=== PATIENT | male | born 1980 | race Caucasian/White ===

== ENCOUNTER 2020-05-09 16:19 | Emergency (ER) | payer OTHER ==
[~2020-05-09 16:19] MED LIST: IBUPROFEN800 M1 PO; PENICILLIN V P250 M1 PO
[2020-05-09 17:29] LABS: BASOPHIL 0.2 % (0-2); EOSINOPHIL 0.2 % (0-5); HGB 9.1 g/dl (13.2-18.0); LYMPHOCYTE 5.1 % (15-48); MCH 30.3 pg (25.0-31.0); MCHC 30.3 g/dL (32.0-36.0); MONOCYTE 12.6 % (0-12); MPV 9.4 fL (6.0-9.5); NEUTROPHIL 81.4 % (41-80); NRBC 0; PLT 498 K/uL (150-400); RDW 17.1 % (11.5-14.0); WBC 12.1 K/uL (4.0-10.5)
[2020-05-09 17:41] LABS: ALBUMIN 2.4 g/dL (3.4-5.0); BILIRUBIN - TOTAL 0.4 mg/dL (0.2-1.0); BUN/CREAT RATIO (CALC) 44.9 RATIO; CREATININE 0.49 mg/dL (0.67-1.17); GLOBULIN (CALCULATION) 4.9 g/dL; TOTAL PROTEIN 7.3 g/dL (6.4-8.2)
[2020-05-09 19:12] LABS: BILIRUBIN NEGATIVE (NEGATIVE); BLOOD NEGATIVE Ery/uL (NEGATIVE); CLARITY HAZY (CLEAR); COLOR YELLOW (YELLOW); GLUCOSE (U) NORMAL (NORMAL); LEUKOCYTES NEGATIVE Leu/uL (NEGATIVE); NITRITE NEGATIVE (NEGATIVE); PROTEIN TRACE (LOW) mg/dL (NEGATIVE); UROBILINOGEN 0.2 mg/dL (0.2-1.0)
[2020-05-09 19:16] LABS: AMORPHOUS URATES CRYSTALS MODERATE; BACTERIA TRACE
[2020-05-12 11:05] LABS: RETICULOCYTE COUNT 2.9 % (1.0-2.0)
[2020-05-12 11:11] LABS: IRON % SATURATION 9.3 %SAT (20-50)
== END 2020-05-09 20:33 | disposition home or self-care (01) ==
LOC: FER 16:19
PROVIDERS: Nurse Practitioner Family
DX: R10.9 Unspecified abdominal pain (principal); C78.7 Secondary malignant neoplasm of liver and intrahepatic bile duct; C77.2 Secondary and unspecified malignant neoplasm of intra-abdominal lymph nodes; Z85.47 Personal history of malignant neoplasm of testis; Z93.1 Gastrostomy status
CPT/HCPCS: 36415; 80053; 81001; 82728; 82746; 83540; 83550; 85025; J7030; Q9967

== ENCOUNTER 2020-12-30 15:15 | Day surgery (SDCO) | payer OTHER ==
[~2020-12-30] VITALS: Ht 185.4 cm; Wt 73.7 kg
[2020-12-30 15:58] LABS: BASOPHIL 1.9 % (0-2); EOSINOPHIL 1.9 % (0-5); HCT 25.3 % (42.0-52.0); HGB 8.5 g/dl (13.2-18.0); LYMPHOCYTE 58.5 % (15-48); MCH 37.4 pg (25.0-31.0); MCHC 33.6 g/dL (32.0-36.0); MCV 111.5 fL (78.0-100.0); MONOCYTE 15.1 % (0-12); MPV 10.2 fL (6.0-9.5); NEUTROPHIL 22.6 % (41-80); NRBC 0; PLT 100 K/uL (150-400); RBC 2.27 M/uL (4.70-6.00); RDW 16.4 % (11.5-14.0)
[2020-12-30 16:09] LABS: WBC 0.5 K/uL (4.0-10.5)
[2020-12-30 16:22] LABS: ALBUMIN 2.5 g/dL (3.4-5.0); BILIRUBIN - TOTAL 0.9 mg/dL (0.2-1.0); BUN/CREAT RATIO (CALC) 32.7 RATIO; CREATININE 0.52 mg/dL (0.67-1.17); GLOBULIN (CALCULATION) 3.6 g/dL; POTASSIUM 3.9 mmol/L (3.5-5.1); TOTAL PROTEIN 6.1 g/dL (6.4-8.2)
[2020-12-30 16:26] LABS: LACTIC ACID 1.6 mmol/L (0.4-1.9)
[2020-12-30 17:11] LABS: CORONAVIRUS 2019 SARS-COV-2 NEGATIVE (NEGATIVE); INFLUENZA A NAA NEGATIVE (NEGATIVE)
[2020-12-30 17:48] LABS: BILIRUBIN NEGATIVE (NEGATIVE); BLOOD NEGATIVE Ery/uL (NEGATIVE); CLARITY CLEAR (CLEAR); COLOR YELLOW (YELLOW); GLUCOSE (U) NORMAL (NORMAL); LEUKOCYTES NEGATIVE Leu/uL (NEGATIVE); NITRITE NEGATIVE (NEGATIVE); PROTEIN TRACE (LOW) mg/dL (NEGATIVE); SPECIFIC GRAVITY >=1.030 (1.001-1.030); UROBILINOGEN 0.2 mg/dL (0.2-1.0)
[2020-12-30] MEDS ORDERED: PROTONIX 40MG T40 MG PO (21:34)
[2020-12-30] MEDS ORDERED: CYMBALTA 30MG C30 MG PO (21:34)
[2020-12-30] MEDS ORDERED: ELIQUIS5 MG PO ×2 (21:34→21:37)
[2020-12-30] MEDS ORDERED: POTASSIUM CHLO20 ME2 PO (21:35)
[2020-12-30] MEDS ORDERED: OXYCODONE HCL10 MG PO (21:36)
--- NOTE | 2020-12-31 02:07 | NUR ---
PT TEMP 99.0 TYLENOL EFFECTIVE
[2020-12-31 06:10] LABS: BASOPHIL 1.2 % (0-2); EOSINOPHIL 2.4 % (0-5); HGB 8.5 g/dl (13.2-18.0); LYMPHOCYTE 58.5 % (15-48); MCH 37.3 pg (25.0-31.0); MCHC 32.7 g/dL (32.0-36.0); MONOCYTE 12.2 % (0-12); MPV 10.8 fL (6.0-9.5); NEUTROPHIL 25.7 % (41-80); NRBC 0; PLT 105 K/uL (150-400); RBC 2.28 M/uL (4.70-6.00); RDW 16.7 % (11.5-14.0)
[2020-12-31 06:52] LABS: ALBUMIN 2.5 g/dL (3.4-5.0); BILIRUBIN - TOTAL 0.8 mg/dL (0.2-1.0); BUN/CREAT RATIO (CALC) 17.5 RATIO; C-REACTIVE PROTEIN 4.3 mg/dL (<=0.90); CREATININE 0.57 mg/dL (0.67-1.17); GLOBULIN (CALCULATION) 3.5 g/dL; MAGNESIUM 1.7 mg/dL (1.8-2.4); PHOSPHORUS 1.6 mg/dL (2.6-4.7); POTASSIUM 4.2 mmol/L (3.5-5.1)
[2020-12-31 07:39] LABS: WBC 0.8 K/uL (4.0-10.5)
[2020-12-31 08:00] LABS: NEUTROPHILS(M) 12 % (41-80); TOTAL CELL COUNT 50
[2020-12-31 08:02] LABS: EOSINOPHIL(M) 4 % (0-5); MONOCYTE(M) 4 % (0-12)
[2020-12-31 08:03] LABS: BAND 10 % (0-10); VARIANT LYMPHOCYTE 4
[2020-12-31 08:05] LABS: LYMPHOCYTE(M) 66 % (15-48)
[2020-12-31 08:06] LABS: ANISOCYTOSIS MODERATE; PLATELET ESTIMATE DECREASED
[2020-12-31 08:07] LABS: PLATELET MORPHOLOGY NORMAL
--- NOTE | 2020-12-31 15:37 | NUR ---
REFERRAL REGARDING RESOURCES. MET WITH PT. HE ADVISED THAT HE DOES NOT USE ANY DME. HE HAS ALREADY RECEIVED HIS SOCIAL SECURITY DISABILITY. HE HAS MET WITH BRENDA CH[facility]. HE HAS INFORMATION REGARADING RESOURCES RELATED TO [facility]. HE CONTINUES TREATMENTS WITH DR. SHERMAN AT THE [facility]. HIS GIRLFRIEND, WHOM HE RESIDES WITH, TRANSPORTS HIM FOR HIS TREATMENTS.
[2021-01-01 05:39] LABS: BASOPHIL 0.8 % (0-2); EOSINOPHIL 1.6 % (0-5); HCT 22.6 % (42.0-52.0); HGB 7.4 g/dl (13.2-18.0); MCHC 32.7 g/dL (32.0-36.0); MPV 10.4 fL (6.0-9.5); NEUTROPHIL 32.8 % (41-80); NRBC 7.2; PLT 108 K/uL (150-400); RDW 16.8 % (11.5-14.0)
[2021-01-01 06:16] LABS: WBC 1.3 K/uL (4.0-10.5)
[2021-01-01 06:21] LABS: ALBUMIN 2.1 g/dL (3.4-5.0); BILIRUBIN - TOTAL 0.9 mg/dL (0.2-1.0); BUN/CREAT RATIO (CALC) 11.7 RATIO; CREATININE 0.6 mg/dL (0.67-1.17); GLOBULIN (CALCULATION) 3.1 g/dL; POTASSIUM 4.2 mmol/L (3.5-5.1); TOTAL PROTEIN 5.2 g/dL (6.4-8.2)
[2021-01-02 06:08] LABS: HCT 24.5 % (42.0-52.0); HGB 8.2 g/dl (13.2-18.0); LYMPHOCYTE 19.7 % (15-48); MCH 37.6 pg (25.0-31.0); MCHC 33.5 g/dL (32.0-36.0); MCV 112.4 fL (78.0-100.0); NEUTROPHIL 34.6 % (41-80); NRBC 5.2; PLT 124 K/uL (150-400); RBC 2.18 M/uL (4.70-6.00); RDW 17.1 % (11.5-14.0)
[2021-01-02 06:09] LABS: MONOCYTE 25.9 % (0-12); WBC 3.1 K/uL (4.0-10.5)
--- NOTE | 2021-01-02 12:18 | NUR ---
PER SOCORRO GONZALEZ, PT. WILL POSSIBILY D/C HOME ON 01/03 WITH NO NEEDS.
[2021-01-03 05:28] LABS: BASOPHIL 0.7 % (0-2); EOSINOPHIL 0.5 % (0-5); HCT 23.7 % (42.0-52.0); HGB 7.9 g/dl (13.2-18.0); LYMPHOCYTE 11.6 % (15-48); MCH 37.6 pg (25.0-31.0); MCHC 33.3 g/dL (32.0-36.0); MCV 112.9 fL (78.0-100.0); MPV 10.1 fL (6.0-9.5); NRBC 2.5; PLT 124 K/uL (150-400); RDW 17.8 % (11.5-14.0)
[2021-01-03 05:42] LABS: NEUTROPHIL 59.4 % (41-80); WBC 7.5 K/uL (4.0-10.5)
[2021-01-03 05:45] LABS: ALBUMIN 2.1 g/dL (3.4-5.0); BILIRUBIN - TOTAL 1.1 mg/dL (0.2-1.0); BUN/CREAT RATIO (CALC) 5.1 RATIO; CREATININE 0.79 mg/dL (0.67-1.17); TOTAL PROTEIN 5.1 g/dL (6.4-8.2)
== END 2021-01-03 11:45 | disposition home or self-care (01) ==
LOC: FER 15:15 → FMS 18:18
PROVIDERS: Internal Medicine; Nurse Practitioner; ADMIT Family Medicine
DX: D70.9 Neutropenia, unspecified (principal); R50.81 Fever presenting with conditions classified elsewhere; K94.22 Gastrostomy infection; C15.9 Malignant neoplasm of esophagus, unspecified; C79.9 Secondary malignant neoplasm of unspecified site; D61.818 Other pancytopenia; F17.210 Nicotine dependence, cigarettes, uncomplicated; Z79.01 Long term (current) use of anticoagulants; Z79.899 Other long term (current) drug therapy; Z20.822 Contact with and (suspected) exposure to COVID-19
CPT/HCPCS: 36415; 71250; 80053; 80202; 81003; 82728; 83605; 83615; 83735; 84100; 84145; 85025; 86140; 87040; 87880; 94010; C9113; G0378; J1447; J1642; J2405; J2543; J3370; J7030; J7050; U0002

== ENCOUNTER 2021-02-02 10:12 | Emergency (ER) | payer OTHER ==
[~2021-02-02 10:12] MED LIST changes: +CYMBALTA 30MG C30 MG PO; +ELIQUIS5 MG PO; +OXYCODONE HCL10 MG PO; +POTASSIUM CHLO20 ME2 PO; +PROTONIX 40MG T40 MG PO
[2021-02-02 12:03] LABS: BASOPHIL 0.8 % (0-2); EOSINOPHIL 0.5 % (0-5); HGB 9.3 g/dl (13.2-18.0); LYMPHOCYTE 15.8 % (15-48); MCH 35.5 pg (25.0-31.0); MCHC 32.1 g/dL (32.0-36.0); MCV 110.7 fL (78.0-100.0); MPV 9.7 fL (6.0-9.5); NEUTROPHIL 41.4 % (41-80); NRBC 0; PLT 143 K/uL (150-400); RBC 2.62 M/uL (4.70-6.00); RDW 16.9 % (11.5-14.0); WBC 3.7 K/uL (4.0-10.5)
[2021-02-02 12:06] LABS: INR 1.68 (0.9-1.2)
[2021-02-02 12:07] LABS: PTT 49.5 SECONDS (24.4-34.7)
[2021-02-02 12:10] LABS: MONOCYTE 39.4 % (0-12)
[2021-02-02 12:14] LABS: ALBUMIN 2.4 g/dL (3.4-5.0); BILIRUBIN - TOTAL 1.3 mg/dL (0.2-1.0); BUN/CREAT RATIO (CALC) 28.1 RATIO; CREATININE 0.57 mg/dL (0.67-1.17); GLOBULIN (CALCULATION) 3.6 g/dL; POTASSIUM 3.6 mmol/L (3.5-5.1)
== END 2021-02-02 14:33 | disposition home or self-care (01) ==
LOC: FER 10:12
PROVIDERS: Emergency Medicine
DX: R18.8 Other ascites (principal); F17.210 Nicotine dependence, cigarettes, uncomplicated
CPT/HCPCS: 36415; 80053; 85025; 85610; 85730

== ENCOUNTER 2021-04-24 15:23 | Inpatient (IN) | payer OTHER ==
[~2021-04-24] VITALS: Ht 190.5 cm; Wt 61.0 kg
[2021-04-24 16:29] LABS: BASOPHIL 0.2 % (0-2); EOSINOPHIL 0.4 % (0-5); HCT 38.2 % (42.0-52.0); HGB 13.4 g/dl (13.2-18.0); LYMPHOCYTE 4.1 % (15-48); MCH 33.5 pg (25.0-31.0); MCHC 35.1 g/dL (32.0-36.0); MPV 9.4 fL (6.0-9.5); NEUTROPHIL 82.5 % (41-80); NRBC 0; PLT 224 K/uL (150-400); RDW 15.7 % (11.5-14.0); WBC 14.2 K/uL (4.0-10.5)
[2021-04-24 16:41] LABS: BILIRUBIN - TOTAL 1.6 mg/dL (0.2-1.0); CREATININE 1.23 mg/dL (0.67-1.17); GLOBULIN (CALCULATION) 3.6 g/dL; POTASSIUM 4.4 mmol/L (3.5-5.1); TOTAL PROTEIN 5.6 g/dL (6.4-8.2)
[2021-04-24 16:42] LABS: MCV 95.5 fL (78.0-100.0)
[2021-04-24 16:47] LABS: LACTIC ACID 2.9 mmol/L (0.4-1.9)
[2021-04-24 19:22] LABS: CORONAVIRUS 2019 SARS-COV-2 NEGATIVE (NEGATIVE); INFLUENZA A NAA NEGATIVE (NEGATIVE)
[2021-04-24 21:30] LABS: BILIRUBIN NEGATIVE (NEGATIVE); BLOOD NEGATIVE Ery/uL (NEGATIVE); CLARITY CLEAR (CLEAR); COLOR YELLOW (YELLOW); GLUCOSE (U) NORMAL (NORMAL); LEUKOCYTES NEGATIVE Leu/uL (NEGATIVE); NITRITE NEGATIVE (NEGATIVE); PROTEIN NEGATIVE (NEGATIVE); SPECIFIC GRAVITY 1.025 (1.001-1.030); pH 5.5 (5.0-9.0)
[2021-04-24] MEDS ORDERED: MORPHINE S10 MG/5 M1 SL (22:56)
[2021-04-24] MEDS ORDERED: ATIVAN 2MG/ML2 MG/ML SL (22:58)
[2021-04-24] MEDS ORDERED: BACTRIM 200MG/480 ML PO (23:00)
[2021-04-24] MEDS ORDERED: HALOPERIDOL SL (23:08)
[2021-04-24] MEDS ORDERED: DURAGESIC1 EAC1 TOP (23:10)
[2021-04-25 00:05] LABS: RETICULOCYTE COUNT 2.9 % (1.0-2.0)
[2021-04-25 00:15] LABS: IRON % SATURATION 23.8 %SAT (20-50)
[2021-04-25 00:21] LABS: BUN/CREAT RATIO (CALC) 37.1 RATIO; CREATININE 1.24 mg/dL (0.67-1.17); POTASSIUM 3.9 mmol/L (3.5-5.1)
--- NOTE | 2021-04-25 03:35 | NUR ---
CALLED TO ROOM PER FAMILY PATIENT UP TO BSC DURING TRANSFER BACK TO BED IT WAS NOTED THAT A MODERATE AMOUNT OF BLEEDING WITH CLOTS PRESENT FOR G-TUBE SITE. PRESSURE APPLIED TO AREA AND SUPPLY CHAIN DIRECTOR ASSESSED PATIENT, NEW ORDERS RECIEVED, AREA CLEANSED WITH DRESSING APPIED. FAMILY REMAINS AT BEDSIDE.
--- NOTE | 2021-04-25 03:37 | NUR ---
BLEEDING CONTROLLED AT THIS TIME.
--- NOTE | 2021-04-25 05:18 | NUR ---
180CC OF STOMACH CONTENT EMPTIED FROM G-TUBE INTO DRAINAGE BAG TO BSD.
[2021-04-25 06:17] LABS: BASOPHIL 0.1 % (0-2); EOSINOPHIL 0.2 % (0-5); HCT 31.3 % (42.0-52.0); HGB 11.2 g/dl (13.2-18.0); LYMPHOCYTE 3.5 % (15-48); MCHC 35.8 g/dL (32.0-36.0); MCV 95.1 fL (78.0-100.0); MONOCYTE 12.7 % (0-12); MPV 9.4 fL (6.0-9.5); NEUTROPHIL 82.7 % (41-80); NRBC 0; PLT 180 K/uL (150-400); RBC 3.29 M/uL (4.70-6.00); RDW 15.5 % (11.5-14.0); WBC 14.1 K/uL (4.0-10.5)
[2021-04-25 06:35] LABS: BUN/CREAT RATIO (CALC) 33.9 RATIO; CREATININE 1.27 mg/dL (0.67-1.17); POTASSIUM 3.4 mmol/L (3.5-5.1)
--- NOTE | 2021-04-25 11:48 | NUR ---
ASSISTED SURGON AT BEDSIDE, SURGON WANTS OSTOMY BARRIOR SWAB USED WITH OSTOMY ADAPT PASTE APPLIED, OSTOMY BASE APPLIED AROUND GTUBE TO HELP PROTECT SKIN FROM DRAINAGE, SPONGE GAUZE THEN APPLIED AROUNG TUBE, GTUBE APPLIED TO INTERMITTEN LOW WALL SUCTION PER MD VERBAL ORDER, SURGON CAME BACK TO ASSESS INTERVENTION
[2021-04-25 15:44] LABS: BUN/CREAT RATIO (CALC) 38.5 RATIO; CREATININE 1.35 mg/dL (0.67-1.17); POTASSIUM 3.3 mmol/L (3.5-5.1)
[2021-04-25 21:14] LABS: BILIRUBIN NEGATIVE (NEGATIVE); BLOOD NEGATIVE Ery/uL (NEGATIVE); CLARITY CLEAR (CLEAR); COLOR YELLOW (YELLOW); GLUCOSE (U) NORMAL (NORMAL); LEUKOCYTES NEGATIVE Leu/uL (NEGATIVE); NITRITE NEGATIVE (NEGATIVE); PROTEIN NEGATIVE (NEGATIVE); SPECIFIC GRAVITY 1.025 (1.001-1.030); UROBILINOGEN 0.2 mg/dL (0.2-1.0); pH 5.5 (5.0-9.0)
[2021-04-25 21:27] LABS: AMORPHOUS URATES CRYSTALS MODERATE; BACTERIA 2+; URINARY RBC RARE; URINARY WBC RARE
--- NOTE | 2021-04-25 21:49 | NUR ---
2015- ORDER RECIEVED TO PLACE CORRIGAN D/T BLADDER SCAN RESULTS OF 999+ AND U/O OF 125CC/HR MULTI ATTEMPTS TO INSERT CORRIGAN WITH VARIOUS SIZES. INSTRUCTIONAL SYSTEMS DESIGN CONSULTANT NOTFIED AND INSERTED UROLOGY CATHETER FOR UROLOGY KIT FROM ER. PATIENT RETURNED LESS THAN 250CC OF YELLOW URINE. BLADDER SCAN REPEATED WITH SAME RESULTS OF 999+, BLADDER SCAN RESULTS PER INSTRUCTIONAL SYSTEMS DESIGN CONSULTANT MAYBE RELATED TO ASCITES. PATIENT TOLERATED PROCEDURE WELL.URINE SEND TO LAB FOR URINE AND CULTURE.
[2021-04-26 09:03] LABS: BASOPHIL 0.1 % (0-2); EOSINOPHIL 0.1 % (0-5); HCT 27.8 % (42.0-52.0); HGB 9.6 g/dl (13.2-18.0); LYMPHOCYTE 3.4 % (15-48); MCH 33.9 pg (25.0-31.0); MCHC 34.5 g/dL (32.0-36.0); MCV 98.2 fL (78.0-100.0); MONOCYTE 11.3 % (0-12); MPV 9.1 fL (6.0-9.5); NEUTROPHIL 84.6 % (41-80); NRBC 0; PLT 141 K/uL (150-400); RBC 2.83 M/uL (4.70-6.00); RDW 16.1 % (11.5-14.0); WBC 11.6 K/uL (4.0-10.5)
[2021-04-26 09:18] LABS: CREATININE 1.12 mg/dL (0.67-1.17); MAGNESIUM 1.8 mg/dL (1.8-2.4); POTASSIUM 2.9 mmol/L (3.5-5.1)
--- NOTE | 2021-04-27 04:29 | NUR ---
0415- PATIENT REQUESTING PAIN MEDICATION ROUTINELY AND STATING IT IS NOT LASTING THE FULL 2 HOURS. STATES HIS PAIN IS MORE SEVERE IN HIS BACK. SPOKE WITH SPORTS FITNESS AND WELLNESS DIRECTOR NEW ORDER RECIEVED TO START FENTANYL TRANSDERMAL PATCH 25MCG/HR FOR PAIN CONTROL. PATIENT WAS USING FENTANYL PATCHES AT HOME PRIOR TO ADMISSION. PATCH PLACED ON RIGHT UPPER CHEST WITH TEGADERM TO SECURE. DISCUSS MEDICATION AND PAIN CONTROL PLAN WITH PATIENT STATES UNDERSTANDING.
[2021-04-27 08:04] LABS: BASOPHIL 0.2 % (0-2); EOSINOPHIL 0.4 % (0-5); HCT 27.7 % (42.0-52.0); HGB 9.6 g/dl (13.2-18.0); LYMPHOCYTE 4.1 % (15-48); MCH 34.5 pg (25.0-31.0); MCHC 34.7 g/dL (32.0-36.0); MCV 99.6 fL (78.0-100.0); MONOCYTE 11.7 % (0-12); MPV 9.3 fL (6.0-9.5); NEUTROPHIL 82.8 % (41-80); NRBC 0; PLT 141 K/uL (150-400); RBC 2.78 M/uL (4.70-6.00); RDW 16.3 % (11.5-14.0); WBC 9.8 K/uL (4.0-10.5)
[2021-04-27 08:17] LABS: BUN/CREAT RATIO (CALC) 40.8 RATIO; CREATININE 0.76 mg/dL (0.67-1.17); MAGNESIUM 1.9 mg/dL (1.8-2.4); POTASSIUM 2.9 mmol/L (3.5-5.1)
--- NOTE | 2021-04-27 14:02 | NUR ---
MET WITH PT AND HIS GIRLFRIEND. DISCUSSED SOME OPTIONS WITH PT. I.E. POSSIBLY GOING BACK TO DR. SHERMAN SO THAT HE MAY ORDER LABS FOR PT AND COMING TO OUTPT IF TREATMENT NEEDED. HOSPICE-BUT GIRLFRIEND IS NOT VERY HAPPY WITH THE SERVICES THEY HAVE RECEIVED. HOWEVER, THEY ARE CONCERNED WITH NOT BEING ABLE TO GET HIS PAIN MEDICATION. THE PT AND HIS GIRLFRIEND ARE GOING TO DISCUSS THEIR OPTIONS AND I WILL MEET WITH THEM AGAIN.
[2021-04-28 05:29] LABS: BASOPHIL 0.3 % (0-2); EOSINOPHIL 0.4 % (0-5); HCT 30.4 % (42.0-52.0); HGB 9.9 g/dl (13.2-18.0); LYMPHOCYTE 5.1 % (15-48); MCH 33.3 pg (25.0-31.0); MCHC 32.6 g/dL (32.0-36.0); MCV 102.4 fL (78.0-100.0); MONOCYTE 12.7 % (0-12); MPV 8.8 fL (6.0-9.5); NEUTROPHIL 80.7 % (41-80); NRBC 0; PLT 137 K/uL (150-400); RBC 2.97 M/uL (4.70-6.00); RDW 16.3 % (11.5-14.0); WBC 9.7 K/uL (4.0-10.5)
[2021-04-28 05:40] LABS: INR 1.09 (0.9-1.2); PROTHROMBIN TIME 13.5 SECONDS (11.8-13.4); PTT 32.6 SECONDS (24.4-34.7)
[2021-04-28 05:45] LABS: BUN/CREAT RATIO (CALC) 35.9 RATIO; CREATININE 0.64 mg/dL (0.67-1.17); POTASSIUM 3.5 mmol/L (3.5-5.1)
--- NOTE | 2021-04-28 16:13 | NUR ---
BANDAID SITE ASSESSED FROM PERCENTESIS TO LEFT LOWER SIDE OF ABD. C/D/I
--- NOTE | 2021-04-28 17:28 | NUR ---
MET WITH PT AND GIRLFRIEND THIS DATE. THEY HAVE DECIDED TO LET DR. SHERMAN MANAGE PT CARE AND TO GO HOME WITHOUT HOSPICE.
== END 2021-04-28 20:00 | disposition home or self-care (01) | DRG 393 ==
LOC: FER 15:23 → FMS 17:48
PROVIDERS: Emergency Medicine; Nurse Practitioner Acute Care; ADMIT Internal Medicine
DX: K94.22 Gastrostomy infection (principal); A41.9 Sepsis, unspecified organism; R65.20 Severe sepsis without septic shock; E43 Unspecified severe protein-calorie malnutrition; E87.1 Hypo-osmolality and hyponatremia; N17.9 Acute kidney failure, unspecified; R18.0 Malignant ascites; C78.7 Secondary malignant neoplasm of liver and intrahepatic bile duct; C78.89 Secondary malignant neoplasm of other digestive organs; C77.2 Secondary and unspecified malignant neoplasm of intra-abdominal lymph nodes; C79.71 Secondary malignant neoplasm of right adrenal gland; E87.2 Acidosis; K92.2 Gastrointestinal hemorrhage, unspecified; L03.311 Cellulitis of abdominal wall; Z68.1 Body mass index [BMI] 19.9 or less, adult; Z20.822 Contact with and (suspected) exposure to COVID-19; C62.90 Malignant neoplasm of unspecified testis, unspecified whether descended or undescended; L89.151 Pressure ulcer of sacral region, stage 1; F17.210 Nicotine dependence, cigarettes, uncomplicated; D64.9 Anemia, unspecified; E86.0 Dehydration; K59.00 Constipation, unspecified
CPT/HCPCS: 36415; 74018; 80048; 80053; 80202; 81001; 81003; 82728; 83540; 83550; 83605; 83735; 83930; 84145; 85025; 85610; 85730; 87040; 87070; 87088; 87205; C9113; J0696; J1170; J1650; J1885; J2060; J2270; J2405; J3360; J3370; J3480; J7030; J7040; J7050; P9047; Q9967; U0002

== ENCOUNTER 2021-05-06 23:40 | Inpatient (IN) | payer OTHER ==
[~2021-05-06] VITALS: Ht 188 cm; Wt 57.8 kg
[~2021-05-06 23:40] MED LIST changes: +ATIVAN 2MG/ML2 MG/ML SL; +BACTRIM 200MG/480 ML PO; +DURAGESIC1 EAC1 TOP; +HALOPERIDOL SL; +MORPHINE S10 MG/5 M1 SL
[2021-05-07 00:49] LABS: BASOPHIL 0.1 % (0-2); EOSINOPHIL 0 % (0-5); HCT 34.8 % (42.0-52.0); HGB 12.3 g/dl (13.2-18.0); LYMPHOCYTE 3.4 % (15-48); MCHC 35.3 g/dL (32.0-36.0); MCV 96.1 fL (78.0-100.0); MONOCYTE 8.8 % (0-12); MPV 10.2 fL (6.0-9.5); NEUTROPHIL 86.4 % (41-80); NRBC 0; PLT 177 K/uL (150-400); RBC 3.62 M/uL (4.70-6.00); WBC 15.3 K/uL (4.0-10.5)
[2021-05-07 00:53] LABS: INR 1.01 (0.9-1.2); IRON % SATURATION 16.7 %SAT (20-50); PROTHROMBIN TIME 12.7 SECONDS (11.8-13.4); PTT 32.6 SECONDS (24.4-34.7)
[2021-05-07 01:10] LABS: ALBUMIN 1.8 g/dL (3.4-5.0); BILIRUBIN - TOTAL 0.9 mg/dL (0.2-1.0); CREATININE 2.15 mg/dL (0.67-1.17); GLOBULIN (CALCULATION) 3.7 g/dL; MAGNESIUM 3.5 mg/dL (1.8-2.4); POTASSIUM 4.9 mmol/L (3.5-5.1); TOTAL PROTEIN 5.5 g/dL (6.4-8.2)
[2021-05-07 01:13] LABS: LACTIC ACID 2.8 mmol/L (0.4-1.9)
[2021-05-07 01:37] LABS: CORONAVIRUS 2019 SARS-COV-2 NEGATIVE (NEGATIVE); INFLUENZA A NAA NEGATIVE (NEGATIVE)
[2021-05-07] MEDS ORDERED: COMPAZINE10 MG PO (03:29)
[2021-05-07] MEDS ORDERED: REGLAN10 MG PO (03:30)
[2021-05-07] MEDS ORDERED: OXYCODONE HCL10 MG PO (03:32)
[2021-05-07] MEDS ORDERED: ASTAXANTHIN4 MG TOP (03:36)
[2021-05-07 03:57] LABS: BILIRUBIN NEGATIVE (NEGATIVE); BLOOD NEGATIVE Ery/uL (NEGATIVE); CLARITY CLEAR (CLEAR); COLOR YELLOW (YELLOW); GLUCOSE (U) NORMAL (NORMAL); LEUKOCYTES NEGATIVE Leu/uL (NEGATIVE); NITRITE NEGATIVE (NEGATIVE); PROTEIN TRACE (LOW) mg/dL (NEGATIVE); SPECIFIC GRAVITY 1.015 (1.001-1.030); UROBILINOGEN 0.2 mg/dL (0.2-1.0); pH 5.5 (5.0-9.0)
[2021-05-07 07:03] LABS: CREATININE 2.07 mg/dL (0.67-1.17); MAGNESIUM 3.3 mg/dL (1.8-2.4); PHOSPHORUS 4.5 mg/dL (2.6-4.7); POTASSIUM 4.6 mmol/L (3.5-5.1)
--- NOTE | 2021-05-07 09:13 | NUR ---
DR. DUNCAN REPLACED G-TUBE WITH 20F TUBE. PT GASTRIC CONTENTENTS CLEANED FROM ABDOMEN. PREMEDICATED WITH 1MG DILAUDID. NO COMPLICATIONS NOTED. WILL MONITOR GT OUTPUT.
--- NOTE | 2021-05-07 10:00 | NUR ---
ORTHOSTATICS 110/66 79, 109/63 91, 86/[address] CLANCY HOLD LASIX AT THIS TIME AND RE-EVALUATE THIS AFTERNOON
--- NOTE | 2021-05-07 10:54 | NUR ---
PT GT SITE WAS LEAKING FLUID FROM INSERTION SITE. TRIED TO STOP OOZING BUT TUBE ALMOST CAME ALL THE WAY OUT, BALLOON WAS BUSTED. CALLED DR. DUNCAN, HE STATED TO REPLACE TUBE WITH 20FR CORRIGAN. TUBE REPLACED WITHOUT DIFFICULTY. BARRIER CREAM APPLIED AROUND SITE AND PRESSURE DRESSING APPLIED.
[2021-05-07 14:11] LABS: CREATININE 1.95 mg/dL (0.67-1.17); POTASSIUM 4.1 mmol/L (3.5-5.1)
[2021-05-08 05:25] LABS: HCT 27.7 % (42.0-52.0); HGB 9.4 g/dL (13.2-18.0)
[2021-05-08 09:57] LABS: CREATININE 1.73 mg/dL (0.67-1.17); POTASSIUM 3.1 mmol/L (3.5-5.1)
--- NOTE | 2021-05-08 10:27 | NUR ---
05/08/21 Mr. Petty has a dx of metastatic cancer. He was with Hospice and elected to discontinue Hospice services. Palliative care services through [facility] was discussed with Mr. Petty, Pattie Petty, mother, and Kathy Lisa, girlfriend. They would like to accept Palliative Care. A referral was made to [phone]. The wait list is 1 - 2 weeks.
[2021-05-09 04:22] LABS: CREATININE 1.37 mg/dL (0.67-1.17); MAGNESIUM 2.8 mg/dL (1.8-2.4); POTASSIUM 3.2 mmol/L (3.5-5.1)
[2021-05-09 04:28] LABS: BASOPHIL 0.1 % (0-2); EOSINOPHIL 0 % (0-5); HCT 29.4 % (42.0-52.0); HGB 9.7 g/dl (13.2-18.0); LYMPHOCYTE 1.6 % (15-48); MCH 34.4 pg (25.0-31.0); MONOCYTE 5.6 % (0-12); MPV 9.7 fL (6.0-9.5); NEUTROPHIL 91.9 % (41-80); NRBC 0; RBC 2.82 M/uL (4.70-6.00); RDW 16.5 % (11.5-14.0); WBC 17.1 K/uL (4.0-10.5)
[2021-05-09 04:37] LABS: MCV 104.3 fL (78.0-100.0)
[2021-05-09 04:38] LABS: PLT 81 K/uL (150-400)
[2021-05-10 04:34] LABS: BASOPHIL 0.1 % (0-2); EOSINOPHIL 0.1 % (0-5); HGB 9.9 g/dl (13.2-18.0); LYMPHOCYTE 1.5 % (15-48); MCH 34.1 pg (25.0-31.0); MCV 103.4 fL (78.0-100.0); MPV 9.8 fL (6.0-9.5); NEUTROPHIL 92.7 % (41-80); NRBC 0; RDW 16.5 % (11.5-14.0); WBC 15.7 K/uL (4.0-10.5)
[2021-05-10 04:39] LABS: PLT 100 K/uL (150-400)
[2021-05-10 04:47] LABS: BUN/CREAT RATIO (CALC) 59.5 RATIO; CREATININE 1.16 mg/dL (0.67-1.17); POTASSIUM 3.4 mmol/L (3.5-5.1)
== END 2021-05-10 11:15 | disposition hospice, home (50) | DRG 393 ==
LOC: FER 23:40 → FTCU 05-07 02:42
PROVIDERS: Emergency Medicine; Internal Medicine; Nurse Practitioner; ADMIT Internal Medicine
PROC: 0D20X0Z Change Drainage Device in Upper Intestinal Tract, External Approach (ICD-10-PCS; principal; 2021-05-07)
PROC: 0D20X0Z Change Drainage Device in Upper Intestinal Tract, External Approach (ICD-10-PCS; 2021-05-07)
PROC: 0W9G3ZZ Drainage of Peritoneal Cavity, Percutaneous Approach (ICD-10-PCS; 2021-05-08)
DX: K94.23 Gastrostomy malfunction (principal); E43 Unspecified severe protein-calorie malnutrition; R57.1 Hypovolemic shock; N17.0 Acute kidney failure with tubular necrosis; R65.10 Systemic inflammatory response syndrome (SIRS) of non-infectious origin without acute organ dysfunction; E87.1 Hypo-osmolality and hyponatremia; E87.2 Acidosis; K92.2 Gastrointestinal hemorrhage, unspecified; R18.0 Malignant ascites; C15.9 Malignant neoplasm of esophagus, unspecified; C78.7 Secondary malignant neoplasm of liver and intrahepatic bile duct; C79.00 Secondary malignant neoplasm of unspecified kidney and renal pelvis; Z68.1 Body mass index [BMI] 19.9 or less, adult; Z20.822 Contact with and (suspected) exposure to COVID-19; Z51.5 Encounter for palliative care; E86.0 Dehydration; F17.210 Nicotine dependence, cigarettes, uncomplicated; K59.00 Constipation, unspecified; G89.29 Other chronic pain
CPT/HCPCS: 36415; 71250; 80048; 80053; 81003; 82728; 82962; 83540; 83550; 83605; 83615; 83690; 83735; 83880; 84100; 84145; 84439; 84443; 84484; 85014; 85018; 85025; 85610; 85730; 87040; 87088; 93005; 94010; 94762; C9113; J1170; J1642; J2405; J2543; J3480; J7030; J7040; J7042; P9046; P9047; U0002

== ENCOUNTER 2021-05-11 16:41 | Inpatient (IN) | payer OTHER ==
[~2021-05-11] VITALS: Ht 188 cm; Wt 62.2 kg
[~2021-05-11 16:41] MED LIST changes: +ASTAXANTHIN4 MG TOP; +COMPAZINE10 MG PO; +REGLAN10 MG PO
[2021-05-11 17:08] LABS: BASOPHIL 0.2 % (0-2); EOSINOPHIL 0.5 % (0-5); HCT 33.4 % (42.0-52.0); HGB 11.2 g/dl (13.2-18.0); MCH 33.9 pg (25.0-31.0); MCHC 33.5 g/dL (32.0-36.0); MCV 101.2 fL (78.0-100.0); MONOCYTE 8.5 % (0-12); MPV 10.8 fL (6.0-9.5); NEUTROPHIL 86.1 % (41-80); NRBC 0; PLT 164 K/uL (150-400); RDW 16.4 % (11.5-14.0); WBC 9.5 K/uL (4.0-10.5)
[2021-05-11 17:17] LABS: CREATININE 1.6 mg/dL (0.67-1.17); POTASSIUM 4.5 mmol/L (3.5-5.1)
--- NOTE | 2021-05-11 20:21 | NUR ---
PATIENT ARRIVED TO FLOOR ON STRETCHER FROM ER MOM AT BEDSIDE. ABLE TO VOICE NEEDS. BED IN LOW POSITION CALL LIGHT IN REACH.
[2021-05-11 22:38] LABS: BILIRUBIN NEGATIVE (NEGATIVE); BLOOD NEGATIVE Ery/uL (NEGATIVE); CLARITY CLEAR (CLEAR); COLOR YELLOW (YELLOW); GLUCOSE (U) NORMAL (NORMAL); LEUKOCYTES NEGATIVE Leu/uL (NEGATIVE); NITRITE NEGATIVE (NEGATIVE); PROTEIN TRACE (LOW) mg/dL (NEGATIVE); UROBILINOGEN 0.2 mg/dL (0.2-1.0); pH 5.5 (5.0-9.0)
[2021-05-12 03:19] LABS: BASOPHIL 0.2 % (0-2); EOSINOPHIL 0.2 % (0-5); HCT 32.3 % (42.0-52.0); HGB 10.7 g/dl (13.2-18.0); LYMPHOCYTE 2.9 % (15-48); MCH 33.5 pg (25.0-31.0); MCHC 33.1 g/dL (32.0-36.0); MCV 101.3 fL (78.0-100.0); MONOCYTE 9.2 % (0-12); MPV 9.9 fL (6.0-9.5); NEUTROPHIL 86.5 % (41-80); NRBC 0; PLT 195 K/uL (150-400); RBC 3.19 M/uL (4.70-6.00); RDW 16.4 % (11.5-14.0); WBC 12.3 K/uL (4.0-10.5)
[2021-05-12 03:35] LABS: ALBUMIN 2.3 g/dL (3.4-5.0); CREATININE 1.59 mg/dL (0.67-1.17); GLOBULIN (CALCULATION) 2.7 g/dL; MAGNESIUM 2.9 mg/dL (1.8-2.4); POTASSIUM 4.6 mmol/L (3.5-5.1)
[2021-05-12 03:43] LABS: LACTIC ACID 4.6 mmol/L (0.4-1.9)
--- NOTE | 2021-05-12 14:02 | NUR ---
PT WAS GIVEN ORAL CONTARST DOWN GTUBE TO CHECK FOR PLACEMENT AND BOWEL MOTILITY. KUB WAS DONE AT BEDSIDE TO VERIFY GTUBE WAS IN THE STOMACH. THEN TAKEN TO GET A CT OF ABD/PELVIS. FER MOLTEN IRON POURER ASSISTED WITH TRANSFER
--- NOTE | 2021-05-12 14:32 | NUR ---
05/12/21 Mr. Petty is dx with metastatic cancer. He lives at home with his girlfriend, Kathy Gonzalez. He has a wc, rw, and s. seat. His father plans to purchase an automatic bed, per Ms. Gonzalez. - Patient / family discahrged from Hospice services. will not accept his insurance. - A [facility] Palliative Care referral was made at the time of the last admission. Ms. Gonzalez reports to have [facility] They will schedule the first meeting when Subhash is discharged from the hospital. - The tube feeding formula will be changed at discharge. Ms. Gonzalez reports to be able to get the tube feedings.
--- NOTE | 2021-05-12 17:05 | NUR ---
163 NOTIFIED KITTY BRADFORD THAT BP WAS 77/48 WITH LEVOPHED AT 16MCG AND AFTER 5MG MIDODRINE WAS GIVEN AN HR AGO,NO NEW ORDERS GIVEN 1643 RECHECKED BP 92/65
[2021-05-13 05:00] LABS: BASOPHIL 0.1 % (0-2); HCT 27.2 % (42.0-52.0); HGB 8.9 g/dl (13.2-18.0); LYMPHOCYTE 3.5 % (15-48); MCHC 32.7 g/dL (32.0-36.0); MCV 103.8 fL (78.0-100.0); MONOCYTE 12.5 % (0-12); MPV 9.6 fL (6.0-9.5); NEUTROPHIL 82.2 % (41-80); NRBC 0; PLT 109 K/uL (150-400); RBC 2.62 M/uL (4.70-6.00); RDW 16.6 % (11.5-14.0)
[2021-05-13 05:17] LABS: ALBUMIN 3.2 g/dL (3.4-5.0); BILIRUBIN - TOTAL 0.9 mg/dL (0.2-1.0); BUN/CREAT RATIO (CALC) 50.4 RATIO; CREATININE 1.27 mg/dL (0.67-1.17); MAGNESIUM 2.6 mg/dL (1.8-2.4); PHOSPHORUS 3.6 mg/dL (2.6-4.7); POTASSIUM 3.9 mmol/L (3.5-5.1); TOTAL PROTEIN 5.2 g/dL (6.4-8.2)
[2021-05-14 05:32] LABS: BASOPHIL 0.2 % (0-2); EOSINOPHIL 0 % (0-5); HGB 8.8 g/dl (13.2-18.0); LYMPHOCYTE 3.7 % (15-48); MCH 34.2 pg (25.0-31.0); MCHC 32.6 g/dL (32.0-36.0); MCV 105.1 fL (78.0-100.0); MONOCYTE 10.9 % (0-12); MPV 9.8 fL (6.0-9.5); NEUTROPHIL 84.5 % (41-80); NRBC 0; PLT 105 K/uL (150-400); RBC 2.57 M/uL (4.70-6.00); RDW 16.4 % (11.5-14.0); WBC 11.1 K/uL (4.0-10.5)
[2021-05-14 05:54] LABS: ALBUMIN 3.2 g/dL (3.4-5.0); BILIRUBIN - TOTAL 0.9 mg/dL (0.2-1.0); BUN/CREAT RATIO (CALC) 50.9 RATIO; CREATININE 1.06 mg/dL (0.67-1.17); GLOBULIN (CALCULATION) 1.9 g/dL; POTASSIUM 4.2 mmol/L (3.5-5.1); TOTAL PROTEIN 5.1 g/dL (6.4-8.2)
[2021-05-15 06:37] LABS: BASOPHIL 0.1 % (0-2); HCT 26.7 % (42.0-52.0); HGB 8.7 g/dl (13.2-18.0); LYMPHOCYTE 4.7 % (15-48); MCH 34.1 pg (25.0-31.0); MCHC 32.6 g/dL (32.0-36.0); MCV 104.7 fL (78.0-100.0); MONOCYTE 13.5 % (0-12); MPV 9.2 fL (6.0-9.5); NEUTROPHIL 79.9 % (41-80); NRBC 0; PLT 109 K/uL (150-400); RBC 2.55 M/uL (4.70-6.00); RDW 16.3 % (11.5-14.0); WBC 7.3 K/uL (4.0-10.5)
[2021-05-15 07:25] LABS: ALBUMIN 3.5 g/dL (3.4-5.0); BILIRUBIN - TOTAL 1.1 mg/dL (0.2-1.0); BUN/CREAT RATIO (CALC) 48.3 RATIO; C-REACTIVE PROTEIN 2.5 mg/dL (<=0.90); CREATININE 0.89 mg/dL (0.67-1.17); FOLIC ACID (SERUM) 10.2 ng/mL (8.6-58.9); GLOBULIN (CALCULATION) 1.8 g/dL; MAGNESIUM 2.3 mg/dL (1.8-2.4); PHOSPHORUS 3.1 mg/dL (2.6-4.7); POTASSIUM 3.5 mmol/L (3.5-5.1); TOTAL PROTEIN 5.3 g/dL (6.4-8.2)
[2021-05-17 05:57] LABS: BASOPHIL 0.1 % (0-2); EOSINOPHIL 0.3 % (0-5); HCT 25.5 % (42.0-52.0); HGB 8.1 g/dl (13.2-18.0); LYMPHOCYTE 7.7 % (15-48); MCH 33.5 pg (25.0-31.0); MCHC 31.8 g/dL (32.0-36.0); MCV 105.4 fL (78.0-100.0); MONOCYTE 11.6 % (0-12); MPV 10.3 fL (6.0-9.5); NEUTROPHIL 79.1 % (41-80); NRBC 0; RBC 2.42 M/uL (4.70-6.00); RDW 16.7 % (11.5-14.0); WBC 7.7 K/uL (4.0-10.5)
[2021-05-17 06:03] LABS: PLT 98 K/uL (150-400)
[2021-05-17 06:14] LABS: CREATININE 1.1 mg/dL (0.67-1.17); MAGNESIUM 1.8 mg/dL (1.8-2.4); PHOSPHORUS 3.4 mg/dL (2.6-4.7)
--- NOTE | 2021-05-18 06:22 | NUR ---
CONSUMER EDUCATOR DELMIS AWAER OF PT LEAKING AROUND PEG TUBE. LARGE AMOUNT. DRSG CHANGE TWICE WITH SATURATED GUAZE AND TOWELS. DELMIS AWARE OF PEG POPPING OUT AND REINSERTED WITHOUT DIFFICULTY. NO NEW ORDERS AT THIS TIME
[2021-05-18 06:52] LABS: ALBUMIN 2.9 g/dL (3.4-5.0); BUN/CREAT RATIO (CALC) 31.6 RATIO; CREATININE 1.17 mg/dL (0.67-1.17); PHOSPHORUS 4.6 mg/dL (2.6-4.7); POTASSIUM 3.4 mmol/L (3.5-5.1)
--- NOTE | 2021-05-19 10:18 | NUR ---
PATIENT AND GIRLFRIEND STATE THAT HE DOSE NOT WANT THE PERITIONEAL TUBE PLACED
--- NOTE | 2021-05-19 13:22 | NUR ---
05/19/21 Patient and GF were in agreement for Hospice to visit to discuss re-admission. Rosalina Serrano met with Patient and GF at bedside. They have agreed to Hospice services at discharge.
[2021-05-20 07:05] LABS: BUN/CREAT RATIO (CALC) 42.6 RATIO; CREATININE 1.22 mg/dL (0.67-1.17); POTASSIUM 3.8 mmol/L (3.5-5.1)
[2021-05-20 07:09] LABS: BASOPHIL 0.2 % (0-2); EOSINOPHIL 0.1 % (0-5); HCT 25.4 % (42.0-52.0); HGB 8.4 g/dl (13.2-18.0); LYMPHOCYTE 3.2 % (15-48); MCH 34.7 pg (25.0-31.0); MCHC 33.1 g/dL (32.0-36.0); MONOCYTE 7.5 % (0-12); MPV 10.1 fL (6.0-9.5); NEUTROPHIL 87.8 % (41-80); NRBC 0; PLT 120 K/uL (150-400); RBC 2.42 M/uL (4.70-6.00); RDW 17.4 % (11.5-14.0); WBC 16.1 K/uL (4.0-10.5)
--- NOTE | 2021-05-20 14:42 | NUR ---
05/20/21 WC has been delivered to bedside.
--- NOTE | 2021-05-21 12:02 | NUR ---
05/21 Patient has been provided with Hospice's telephone # and advised to notify Hospice when they arrive home.
[2021-05-21] MEDS ORDERED: VENTOLIN HFA IN18 GM INH (14:54)
[2021-05-21] MEDS ORDERED: PROTEINEX LIQU473 ML PO (14:54)
[2021-05-21] MEDS ORDERED: TESSALON PERLE100 MG PO (14:54)
[2021-05-21] MEDS ORDERED: MIDODRINE HCL10 MG PO (15:51)
== END 2021-05-21 16:18 | disposition hospice, home (50) | DRG 919 ==
LOC: FER 16:41 → FICU 17:29 → FMS 17:29
PROVIDERS: Allergy & Immunology Allergy; Emergency Medicine; Nurse Practitioner; Student in an Organized Health Care Education/Training Program; ADMIT Internal Medicine
PROC: 3E033XZ Introduction of Vasopressor into Peripheral Vein, Percutaneous Approach (ICD-10-PCS; 2021-05-11)
PROC: 0W9G3ZZ Drainage of Peritoneal Cavity, Percutaneous Approach (ICD-10-PCS; 2021-05-12)
PROC: 0D20X0Z Change Drainage Device in Upper Intestinal Tract, External Approach (ICD-10-PCS; 2021-05-14)
PROC: 0W9G3ZZ Drainage of Peritoneal Cavity, Percutaneous Approach (ICD-10-PCS; 2021-05-15)
PROC: 0D20X0Z Change Drainage Device in Upper Intestinal Tract, External Approach (ICD-10-PCS; 2021-05-18)
PROC: 0W9G30Z Drainage of Peritoneal Cavity with Drainage Device, Percutaneous Approach (ICD-10-PCS; principal; 2021-05-20 10:30)
DX: T81.19XA Other postprocedural shock, initial encounter (principal); E43 Unspecified severe protein-calorie malnutrition; J18.9 Pneumonia, unspecified organism; Z68.1 Body mass index [BMI] 19.9 or less, adult; N17.9 Acute kidney failure, unspecified; E87.1 Hypo-osmolality and hyponatremia; E87.2 Acidosis; R18.0 Malignant ascites; K94.23 Gastrostomy malfunction; K31.6 Fistula of stomach and duodenum; C15.9 Malignant neoplasm of esophagus, unspecified; Z51.5 Encounter for palliative care; L89.322 Pressure ulcer of left buttock, stage 2; L89.312 Pressure ulcer of right buttock, stage 2; F17.200 Nicotine dependence, unspecified, uncomplicated; Y95 Nosocomial condition; G89.29 Other chronic pain; R62.7 Adult failure to thrive; D63.0 Anemia in neoplastic disease
CPT/HCPCS: 36415; 71045; 74018; 80048; 80053; 80069; 80202; 81003; 82607; 82728; 82746; 83540; 83550; 83605; 83735; 83880; 84100; 84145; 85025; 86140; 94640; J0780; J1100; J1170; J1642; J1644; J2001; J2405; J2543; J2765; J2916; J3370; J7030; J7040; J7050; J7120; P9047; U0002